=== PATIENT | male | born 1980 | race Hispanic/Latino ===

== ENCOUNTER 2019-03-24 08:11 | Emergency (ER) | payer SELFPAY ==
[2019-03-24 08:58] LABS: Urine Blood NEGATIVE (NEG); Urine Glucose NEGATIVE (NEG); Urine Protein NEGATIVE (NEG); Urine Specific Gravity 1.025 (1.005-1.030); Urine pH 6.5 (5.0-7.0)
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
== END 2019-03-24 10:49 | disposition home or self-care (01) ==
LOC: ER 08:11
DX: M79.18 Myalgia, other site (principal); M54.5 Low back pain
CPT/HCPCS: 81003; 99283